=== PATIENT | male | born 1975 | race Caucasian/White ===

== ENCOUNTER 2017-12-01 11:07 | Emergency (ER) | payer OTHER ==
[~2017-12-01] VITALS: Ht 175.3 cm; Wt 104.3 kg
[2017-12-01 11:15] VITALS: Ht 175.3 cm; Wt 104.3 kg
[2017-12-01 11:38] LABS: BASOPHIL % 0.4 % (0-2); PLATELET COUNT 271 x10^3mcL (130-400); RED CELL DISTRIBUTION WIDTH 12.6 % (11.5-14.5)
[2017-12-01 11:51] LABS: CALCIUM 9.7 mg/dL (8.5-10.1); CARBON DIOXIDE 26.4 mmol/L (21-32); CHLORIDE SERUM 106 mmol/L (98-107); CREATININE SERUM 1.1 mg/dL (0.7-1.3); GFR1 > 60 mL/min; GLUCOSE SERUM 143 mg/dL (74-106); POTASSIUM SERUM 4.4 mmol/L (3.5-5.1); SODIUM SERUM 143 mmol/L (136-145)
[2017-12-01 11:55] LABS: ALBUMIN 4.5 g/dL (3.4-5.0); ALKALINE PHOSPHATASE 66 U/L (46-116); ALT/SGPT 89 U/L (16-63); AST/SGOT 42 U/L (15-37); BILIRUBIN TOTAL 0.59 mg/dL (0.20-1.00); LIPASE 83 IU/L (73-393); TOTAL PROTEIN, SERUM 8.1 g/dL (6.4-8.2)
[2017-12-01 14:28] VITALS: BP 148/85
== END 2017-12-01 14:28 | disposition home or self-care (01) ==
LOC: ED 11:07
PROVIDERS: Emergency Medicine
DX: N20.2 Calculus of kidney with calculus of ureter (principal); Z88.5 Allergy status to narcotic agent
CPT/HCPCS: J1885; J2270; J7030

== ENCOUNTER 2017-12-02 05:51 | Inpatient (IN) | payer OTHER ==
[~2017-12-02] VITALS: Ht 175.3 cm; Wt 96.4 kg
[2017-12-02 05:52] VITALS: Ht 175.3 cm; Wt 96.4 kg
[2017-12-02 07:02] LABS: BASOPHIL % 0.3 % (0-2); PLATELET COUNT 242 x10^3mcL (130-400); RED CELL DISTRIBUTION WIDTH 12.1 % (11.5-14.5)
[2017-12-02 07:04] LABS: CALCIUM 8.6 mg/dL (8.5-10.1); CARBON DIOXIDE 24.3 mmol/L (21-32); CHLORIDE SERUM 103 mmol/L (98-107); CREATININE SERUM 0.9 mg/dL (0.7-1.3); GFR1 > 60 mL/min; GLUCOSE SERUM 134 mg/dL (74-106); POTASSIUM SERUM 3.6 mmol/L (3.5-5.1); SODIUM SERUM 137 mmol/L (136-145)
[2017-12-02 07:09] LABS: ALBUMIN 3.9 g/dL (3.4-5.0); ALKALINE PHOSPHATASE 58 U/L (46-116); ALT/SGPT 65 U/L (16-63); AST/SGOT 29 U/L (15-37); BILIRUBIN TOTAL 0.7 mg/dL (0.20-1.00); LIPASE 1039 IU/L (73-393); TOTAL PROTEIN, SERUM 7.1 g/dL (6.4-8.2)
[2017-12-02 07:10] LABS: AMYLASE 170 U/L (25-115)
[2017-12-02 09:26] LABS: UA SPECIFIC GRAVITY 1.025 (1.005-1.035); microscopic required? YES; urine erythrocyte 3+ (NEGATIVE)
[2017-12-02 09:36] LABS: AMPHETAMINE QUAL UR NONE DETECTED (See below)
[2017-12-02 09:39] LABS: CHOLESTEROL/HDL RATIO 3.8; PHOSPHOROUS 2.5 mg/dL (2.5-4.9)
[2017-12-02 09:49] LABS: FREE T4 0.93 ng/dL (0.76-1.46); FREE THYROXINE INDEX 2.4 ug/dL (1.4-4.5); T4(THYROXINE) 7.2 ug/dL (4.7-13.3)
[2017-12-02 09:50] VITALS: BP 132/91
[2017-12-02 09:58] VITALS: BP 132/91
[2017-12-02 10:02] LABS: T3 TOTAL 1.08 ng/mL
[2017-12-02 18:27] VITALS: BP 131/85
[2017-12-02 21:04] VITALS: BP 152/99
[2017-12-03 05:17] VITALS: BP 146/97
[2017-12-03 06:26] LABS: CARBON DIOXIDE 23.2 mmol/L (21-32); CHLORIDE SERUM 104 mmol/L (98-107); CREATININE SERUM 1.1 mg/dL (0.7-1.3); GFR1 > 60 mL/min; GLUCOSE SERUM 128 mg/dL (74-106); POTASSIUM SERUM 3.8 mmol/L (3.5-5.1); SODIUM SERUM 140 mmol/L (136-145)
[2017-12-03 06:43] LABS: BASOPHIL % 0.1 % (0-2); PLATELET COUNT 210 x10^3mcL (130-400); RED CELL DISTRIBUTION WIDTH 12.9 % (11.5-14.5)
[2017-12-03 09:15] VITALS: BP 138/88
[2017-12-03] MEDS ORDERED: FLO4 PO (11:05)
[2017-12-03] MEDS ORDERED: TOR10 PO (11:06)
[2017-12-03 11:27] VITALS: BP 138/88
[2017-12-04] MEDS ORDERED: MOT600 PO (16:36)
== END 2017-12-03 12:08 | disposition home or self-care (01) | DRG 465 ==
LOC: ED 05:51 → MU 08:18
PROVIDERS: Internal Medicine; Specialist
DX: N20.0 Calculus of kidney (principal); E87.2 Acidosis; K76.0 Fatty (change of) liver, not elsewhere classified; E78.5 Hyperlipidemia, unspecified; I16.0 Hypertensive urgency; Z87.442 Personal history of urinary calculi; Z68.33 Body mass index [BMI] 33.0-33.9, adult; Z88.3 Allergy status to other anti-infective agents; Z88.6 Allergy status to analgesic agent
CPT/HCPCS: 83880; 84439; J1885; J2270; J2405; J3490; J7030

== ENCOUNTER 2017-12-03 22:42 | Inpatient (IN) | payer OTHER ==
[~2017-12-03] VITALS: Ht 167.6 cm; Wt 85.3 kg
[~2017-12-03 22:42] MED LIST: FLO4 PO; TOR10 PO
[2017-12-03 22:45] VITALS: Ht 167.6 cm; Wt 85.3 kg
[2017-12-04 00:55] LABS: microscopic required? YES; urine erythrocyte 2+ (NEGATIVE)
[2017-12-04 01:57] VITALS: BP 144/91
[2017-12-04 02:27] LABS: AMPHETAMINE QUAL UR NONE DETECTED (See below)
[2017-12-04 05:41] VITALS: BP 141/94
[2017-12-04 08:19] VITALS: BP 150/98
[2017-12-04] MEDS ORDERED: MOT600 PO (16:36)
[2017-12-04 17:48] VITALS: BP 150/98
== END 2017-12-04 18:31 | disposition home or self-care (01) | DRG 465 ==
LOC: ED 22:42 → MU 23:42
PROVIDERS: Emergency Medicine; Internal Medicine
DX: N13.2 Hydronephrosis with renal and ureteral calculous obstruction (principal); N17.0 Acute kidney failure with tubular necrosis; I16.0 Hypertensive urgency; K76.0 Fatty (change of) liver, not elsewhere classified; E78.5 Hyperlipidemia, unspecified; F90.9 Attention-deficit hyperactivity disorder, unspecified type; F17.210 Nicotine dependence, cigarettes, uncomplicated; Z88.5 Allergy status to narcotic agent; Z79.899 Other long term (current) drug therapy
CPT/HCPCS: 83880; 84439; 87491; 87591; J1885; J3010; J7030; Q0092; Q0162

== ENCOUNTER 2019-08-01 23:26 | Emergency (ER) | payer OTHER ==
[~2019-08-01] VITALS: Ht 175.3 cm; Wt 98.0 kg
[~2019-08-01 23:26] MED LIST changes: +MOT600 PO
[2019-08-01 23:52] VITALS: Ht 175.3 cm; Wt 98.0 kg
[2019-08-02 00:41] LABS: BASOPHIL % 0.4 % (0-2); PLATELET COUNT 229 x10^3mcL (130-400); RED CELL DISTRIBUTION WIDTH 12.3 % (11.5-14.5)
[2019-08-02 00:50] LABS: CALCIUM 9.4 mg/dL (8.5-10.1); CARBON DIOXIDE 29.2 mmol/L (21-32); CHLORIDE SERUM 100 mmol/L (98-107); GFR1 > 60 mL/min; GLUCOSE SERUM 100 mg/dL (74-106); POTASSIUM SERUM 3.8 mmol/L (3.5-5.1); SODIUM SERUM 139 mmol/L (136-145)
[2019-08-02 00:51] LABS: ALBUMIN 4.3 g/dL (3.4-5.0); ALKALINE PHOSPHATASE 60 U/L (46-116); ALT/SGPT 51 U/L (16-63); AST/SGOT 24 U/L (15-37); BILIRUBIN TOTAL 0.6 mg/dL (0.20-1.00); LIPASE 86 IU/L (73-393); TOTAL PROTEIN, SERUM 7.6 g/dL (6.4-8.2)
[2019-08-02 03:45] VITALS: BP 131/98
== END 2019-08-02 03:45 | disposition home or self-care (01) ==
LOC: ED 23:26
PROVIDERS: Emergency Medicine
DX: R06.00 Dyspnea, unspecified (principal); R06.02 Shortness of breath; I10 Essential (primary) hypertension; Z87.442 Personal history of urinary calculi; Z88.5 Allergy status to narcotic agent
CPT/HCPCS: 36415; Q0092